=== PATIENT | female | born 1965 | race Caucasian/White ===

== ENCOUNTER 2018-02-07 11:56 | Emergency (ER) | payer OTHER ==
[~2018-02-07] VITALS: Ht 175.3 cm; Wt 78.1 kg
[~2018-02-07 11:56] MED LIST: ANUCORT-HC25 MG PR; CELEXA10 MG PO; CYANOCOBALAM1000 MCG PO; DICYCLOMINE HCL10 MG PO; KEPPRA500 MG PO; PSEUDOEPHEDRINE30 MG PO; TEGRETOL200 MG PO; TYLENOL EXTRA500 MG PO; VENTOLIN HFA18 GM IH
[2018-02-07 13:49] VITALS: BP 143/69
== END 2018-02-07 13:49 | disposition home or self-care (01) ==
LOC: EME 11:56
DX: S96.912A Strain of unspecified muscle and tendon at ankle and foot level, left foot, initial encounter (principal); S86.912A Strain of unspecified muscle(s) and tendon(s) at lower leg level, left leg, initial encounter; W10.9XXA Fall (on) (from) unspecified stairs and steps, initial encounter; Y92.008 Other place in unspecified non-institutional (private) residence as the place of occurrence of the external cause; J45.909 Unspecified asthma, uncomplicated; R56.9 Unspecified convulsions; K58.9 Irritable bowel syndrome, unspecified; Z87.891 Personal history of nicotine dependence
CPT/HCPCS: 73590; 73610; 99281; 99284; J1885